=== PATIENT | male | born 1990 | race Hispanic/Latino ===

== ENCOUNTER → 2024-10-08 | Emergency (ER) | payer SELFPAY ==
[2024-10-08 11:33] LABS: #Basophils 0.02 10x3/uL (0.0-0.2); #Monocytes 0.66 10x3/uL (0.0-1.1); #Neutrophils 7.47 10x3/uL (1.5-8.4); %Basophils 0.2 % (0.0-2.0); %Eosinophils 0.9 % (0.0-6.0); %Lymphocytes 21.9 % (18.0-47.0); %Monocytes 6.2 % (0.0-10.0); %Neutrophils 70.7 % (40.0-75.0); Hematocrit 46.6 % (38.8-50.0); Hemoglobin 15.9 g/dL (13.5-17.5); Mean Corpuscular HGB CONC 34.1 g/dL (32.0-36.0); Mean Corpuscular Hemoglobin 30.1 pg (27.0-33.0); Mean Corpuscular Volume 88.1 fL (81.2-95.1); Mean Platelet Volume 10.8 fL (7.4-10.4); Platelet Count 245 10x3/uL (150-450); RBC Distribution Width 12.3 % (11.5-14.5); Red Blood Cell (RBC) Count 5.29 10x6/uL (4.32-5.72); White Blood Cell (WBC) Count 10.6 10x3/uL (3.5-10.5)
[2024-10-08 11:57] LABS: ALT (SGPT) 29 U/L (8-55); AST (SGOT) 19 U/L (5-34); Albumin 3.9 g/dL (3.5-5.0); Alkaline Phosphatase 86 U/L (40-110); Anion Gap 12 mmol/L (10-20); BUN (Urea Nitrogen) 12 mg/dL (8.9-20.6); Bilirubin, Total 0.8 mg/dL (0.2-1.2); Calc. Creatinine Clearance 0 mL/min (70-130); Calcium 9.6 mg/dL (7.8-10.44); Carbon Dioxide 26 mmol/L (22-29); Chloride 106 mmol/L (98-107); Estimated GFR 110; Globulin 3.3 g/dL (2.4-3.5); Glucose 90 mg/dL (70-105); Potassium 4.4 mmol/L (3.5-5.1); Protein, Total 7.2 g/dL (6.0-8.3); Sodium 140 mmol/L (136-145)
[2024-10-08 12:15] LABS: Bilirubin Neg (Negative); Blood, Urine Negative (Negative); Clarity Clear (Clear); Glucose, Urine (Dipstick) Normal (Negative); Ketone, Urine Negative (Negative); Leukocyte Negative (Negative); Nitrite Negative (Negative); Protein, Urine (Dipstick) 15 mg/dl (Neg-Trace); Urobilinogen Normal mg/dL (Less than 2)
[2024-10-08 12:25] LABS: Bacteria/HPF Rare-Few HPF (None Seen); CAUTI Indications for Culture Acute Hematuria; RBC/HPF 0-3 HPF (0-3); WBC/HPF 0-3 HPF (0-3)
[2024-10-08 12:26] LABS: Urine Culture Reflex No No
[2024-10-08 12:40] LABS: PTT 27.3 sec (22.0-33.0); Prothrombin Time 10.9 sec (9.5-12.1)
== END ==
LOC: CSHERS 10:50
DX: R19.7 Diarrhea, unspecified (principal); R10.30 Lower abdominal pain, unspecified
CPT/HCPCS: 36415; 74177; 80053; 81001; 83605; 85025; 85610; 85730